=== PATIENT | male | born 1985 | race Caucasian/White ===

== ENCOUNTER 2017-04-09 07:20 | Emergency (ER) | payer OTHER ==
[2017-04-09 08:10] LABS: CARBON DIOXIDE 29.8 mmol/L (21-32); CHLORIDE SERUM 104 mmol/L (98-107); GFR1 > 60 mL/min; GLUCOSE SERUM 107 mg/dL (74-106); POTASSIUM SERUM 3.6 mmol/L (3.5-5.1); SODIUM SERUM 140 mmol/L (136-145)
[2017-04-09 08:24] VITALS: BP 130/90
== END 2017-04-09 08:24 | disposition home or self-care (01) ==
LOC: ED 07:20
PROVIDERS: Emergency Medicine
DX: M54.5 Low back pain (principal); G62.9 Polyneuropathy, unspecified; M79.645 Pain in left finger(s)
CPT/HCPCS: 36415; J1885